=== PATIENT | male | born 1950 | race Caucasian/White ===

== ENCOUNTER 2018-12-30 20:33 | Inpatient (IN) | payer OTHER ==
[~2018-12-30] VITALS: Ht 177.8 cm; Wt 99.8 kg
[2018-12-30 20:49] LABS: PCO2 Arterial 54.5 mmHg (35-45); PO2 Arterial 167 mmHg (80-100); pH Blood Arterial 6.86 (7.35-7.45)
[2018-12-30 20:53] LABS: Mean Corpuscular HGB 29.7 pg (26.0-34.0); Mean Corpuscular HGB Conc 26.9 g/dL (31.5-36.5); Mean Corpuscular Volume 110 fL (80-100); Mean Platelet Volume 10.7 fL (9.1-12.4); Platelet Count 495 K/mm3 (150-400); RDW Coefficient Variation 13.1 % (11.7-14.2); Red Blood Cell Count 4.71 M/mm3 (4.30-5.90); White Blood Cell Count 18.63 K/mm3 (4.00-11.30)
[2018-12-30 21:12] LABS: International Normalized Ratio 1.37; Prothrombin Time Results 14.1 Sec (9.7-11.5)
[2018-12-30 21:15] LABS: Blood Urea Nitrogen 34 mg/dL (8-24); Bun/Creatinine Ratio 30.6 (12.0-20.0); CHOL/HDL RATIO 5.5; CO2, Blood 15 mmol/L (21-32); CPK Creatine Kinase 186 U/L (39-308); Calcium, Blood 9.4 mg/dL (8.5-10.1); Chloride, Blood 85 mmol/L (98-108); Cholesterol 132 mg/dL (50-200); Creatine Kinase MB Index 2.2 (0.0-4.0); Creatinine, Blood 1.11 mg/dL (0.60-1.20); Glomerular Filtration Rate >60 (60-); HDL Cholesterol 24 mg/dL (>39); LDL/HDL RATIO 3.1; Low Density Lipoprotein Chol 74 mg/dL (0-110); Magnesium, Blood 2.8 mg/dL (1.6-2.4); Triglycerides 168 mg/dL (30-160); Troponin I 0.407 ng/mL (0.000-0.040); Very Low Density Lipoprot Chol 33 mg/dL (6-32)
[2018-12-30 21:25] LABS: Anion Gap 16 mmol/L (6-16); Glucose, Blood 1502 mg/dL (70-99); Potassium, Blood 6.7 mmol/L (3.5-5.5); Sodium, Blood 116 mmol/L (136-145)
[2018-12-30 21:28] LABS: PCO2 Arterial 38.8 mmHg (35-45); PO2 Arterial 402 mmHg (80-100)
[2018-12-30 23:43] LABS: Source, Urine Catheter
[2018-12-30 23:45] LABS: Bilirubin, Urine Neg (Neg); Blood, Urine 3+ (Neg); Glucose Qualitative, Urine 4+ (Neg); Ketones, Urine Neg (Neg); Leukocyte Esterase, Urine Neg (Neg); Nitrite, Urine Neg (Neg); Protein, Urine 2+ (Neg); Specific Gravity, Urine 1.005 (1.003-1.022); Urobilinogen, Urine NORM (Normal)
[2018-12-30 23:57] LABS: Color, Urine Pale Yellow (P-Yellow)
[2018-12-30 23:58] LABS: Appearance, Urine Hazy (Clear); Bacteria Few /hpf; Squamous Epithelial Cells Few /hpf (Few); White Blood Cells, Urine 0-2 /hpf (0-5)
[2018-12-30 23:58] LABS: Glucose, Blood 1426 mg/dL (70-99)
[2018-12-30 23:59] LABS: Amorphous Mod (0-Heavy)
[2018-12-31] LABS: U Amphetamine Screen Not Detected; U Barbituate Screen Not Detected; U Benzodiazapine Screen Not Detected; U Buprenorphine Screen Not Detected; U Cannabinoids Screen Not Detected; U Cocaine Screen Not Detected; U Methadone Screen Not Detected; U Methamphetamine Screen Not Detected; U Opiates Screen Not Detected; U Oxycodone Screen Not Detected; U Phencyclidine Screen Not Detected; U Propoxyphene Screen Not Detected
[2018-12-31 01:07] LABS: Glucose, Blood 1213 mg/dL (70-99)
[2018-12-31 02:14] LABS: PCO2 Arterial 47.4 mmHg (35-45); PO2 Arterial 99.7 mmHg (80-100)
--- NOTE | 2018-12-31 02:53 | NUR ---
PT ARRIVED TO ICU 7 AT 2239 FROM ER. PT IS INTUBATED. NO SEDATION WAS ON WHEN PT ARRIVED. UNRESPONSIVE. PUT PT ON PROPOFOL PER DR. SORIANO. PT POSTURES AT TIMES AND DR. SORIANO WITNESSED. DR. SORIANO WAS IN HOUSE AND PLACED COOLING CATH. TARGET TEMP SET AT 36 DEGREES C. PT IS ON INSULIN GTT. HAS OSTOMY TO L ABD THAT WAS LEAKING AND WHOLE DEVICE WAS FILTHY. STOMA IS LARGE AND NOT PRODRUDING FROM SKIN. THERE APPEARS TO BE A LARGE HERNIA UNDER IT. PT HAS ULCERS ON L FOOT AND CALLUS TO OUTER R FOOT SEE PHOTOS. 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 APPEARS POORLY KEPT. NO FAMILY WITH PT. WAITING TO TAKE PT TO CT UNTIL ENOUGH STAFF CAN ACCOMPANY AND PT IS STABLE ENOUGH TO MOVE.
[2018-12-31 02:55] LABS: Glucose, Blood 926 mg/dL (70-99)
[2018-12-31 04:40] LABS: Hematocrit 35.6 % (37.0-53.0); Hemoglobin 11.9 g/dL (13.5-17.5); Mean Corpuscular HGB 29.7 pg (26.0-34.0); Mean Corpuscular HGB Conc 33.4 g/dL (31.5-36.5); Mean Platelet Volume 9.9 fL (9.1-12.4); Platelet Count 385 K/mm3 (150-400); RDW Coefficient Variation 12.2 % (11.7-14.2); RDW Standard Deviation 39.8 fL (35.1-46.3); Red Blood Cell Count 4.01 M/mm3 (4.30-5.90); White Blood Cell Count 20.21 K/mm3 (4.00-11.30)
[2018-12-31 04:41] LABS: Mean Corpuscular Volume 89 fL (80-100)
[2018-12-31 05:02] LABS: CPK Creatine Kinase 167 U/L (39-308)
[2018-12-31 05:06] LABS: Alanine Aminotransfer (ALT/SGP 57 U/L (12-78); Albumin, Blood 2.5 g/dL (3.4-5.0); Albumin/Globulin Ratio 0.5 (0.8-1.8); Alk Phos 218 U/L (50-136); Anion Gap 7 mmol/L (6-16); Aspartate Aminotrans (AST/SGOT 137 U/L (12-37); Bilirubin, Total 0.3 mg/dL (0.1-1.0); Blood Urea Nitrogen 33 mg/dL (8-24); CO2, Blood 25 mmol/L (21-32); Calcium, Blood 8.8 mg/dL (8.5-10.1); Chloride, Blood 104 mmol/L (98-108); Creatinine, Blood 0.94 mg/dL (0.60-1.20); Globulin, Blood 4.9 g/dL (2.2-4.0); Glomerular Filtration Rate >60 (60-); Glucose, Blood 783 mg/dL (70-99); Potassium, Blood 3.9 mmol/L (3.5-5.5); Sodium, Blood 136 mmol/L (136-145); Total Protein, Blood 7.4 g/dL (6.4-8.2)
--- NOTE | 2018-12-31 06:28 | NUR ---
SUMMARY PT WAS ER ADMIT. INTUBATED AND SEDATED WITH PROPOFOL. PT IS UNRESPONSIVE BUT STARTS COUGHING A LOT WHEN SEDATION IS TURNED DOWN. GRIMACES TO PAINFUL STIMULUS. PT IS BEING COOLED WITH COOLING CATH. COUGHING UP THICK DEE SECRETIONS WITH SOME WHITE SPECS. OSTOMY TO L ABD APPEARS TO HAVE A LARGE HERNIA UNDER IT. STOMA IS IRREGULAR SHAPED. NEW APPLIANCE WAS PLACED. HAS WOUNDS TO BILAT FEET (SEE PHOTOS). WOUND CULTURE SENT DUE TO PURULENT DRAINAGE NOTED. GLUCOSE HAS BEEN HIGH ALL NIGHT BUT IS COMING DOWN WITH INSULIN GTT. ON LEVOPHED NOW DUE TO LOW BP WITH TURNING SEDATION UP. HAD TO HAVE POWER GLIDE PLACED IN ADDITION TO CENTRAL LINE, OS, AND PERIPHERALS DUE TO ALL THE GTT'S PT WAS ON.
[2018-12-31 06:30] LABS: Glucose, Blood 730 mg/dL (70-99)
--- NOTE | 2018-12-31 08:00 | NUR ---
ASSUMED CARE PT. SEDATED AND INTUBATED AT THIS TIME. PROPOFOL GTT AT 20MCG/KG/MIN. PT. CURRENTLY GETTING COOLED VIA ZOLL CENTRAL LINE TO RIGHT GROIN, TEMP CURRENTLY 36.1 C. PT HAS POWERGLIDE TO LEFT UPPER ARM. PT. CURRENTLY HAS LEVOPHED INFUSING AT 8MCG/KG/MIN AND AMIO AT 0.5MG/MIN. PT. HAS BICARB INFUSING ALONG WITH ZOSYN AND INSULIN GTT AT 7U/HR. PT VSS CURRENTLY STABLE, HR 57, CONTINUES WITH DEFIBRILLATOR PADS IN PLACE. PT. HS HERNIA TO LEFT ABD ALONG WITH COLOSTOMY. PT. HAS ESPOSITO DRAINING TO GRAVITY. PT MISSING MULTIPLE TOES AND HAS FOOT WOUNDS-PICTURES IN CHART. DRESSINGS CDI.
[2018-12-31 08:45] LABS: Glucose, Blood 652 mg/dL (70-99)
[2018-12-31 09:36] LABS: Bun/Creatinine Ratio 27.3 (12.0-20.0); Calcium, Blood 8.2 mg/dL (8.5-10.1); Creatinine, Blood 1.21 mg/dL (0.60-1.20)
--- NOTE | 2018-12-31 09:45 | NUR ---
PROPOFOL PLACED ON STAND BY AT THIS TIME FOR NEURO ASSESSMENT.
[2018-12-31 09:49] LABS: Vancomycin, Trough 14.4 ug/mL (5.0-10.0)
[2018-12-31 09:55] LABS: Troponin I 1.63 ng/mL (0.000-0.040)
--- NOTE | 2018-12-31 11:19 | NUR ---
ECHOCARDIOGRAM COMPLETE
--- NOTE | 2018-12-31 11:37 | NUR ---
PT TO CT AND BACK. SHORT RUN OF VTACH (APPROX 5 BEATS) WHILE IN CT, THEN BACK TO SINUS HOLDEN. PT. CONTINUES ON LEVOPHED GTT TITRATED TO 10MCG/KG/MIN WELL AMIO GTT. WITH PROPOFOL ON SB NO PURPOSEFUL MOVEMENTS AT THIS TIME. RR INCREASES TO 30S, AND FACIAL GRIMACE AND COUGHING, HOWEVER NO GAG NOTED. PT. DOES NOT WITHDRAW FROM PAIN AT THIS TIME.
--- NOTE | 2018-12-31 13:09 | NUR ---
REPORT TO SHERIE LIN
--- NOTE | 2018-12-31 13:32 | NUR ---
ASSUMED CARE OF PATIENT LEVOPHED TITRATED DOWN TO 7 MCG ASSESSMENT DONE AT THIS TIME, WILL CONTINUE TO MONITOR
[2018-12-31 15:21] LABS: Anion Gap 8 mmol/L (6-16); Blood Urea Nitrogen 36 mg/dL (8-24); Bun/Creatinine Ratio 38.5 (12.0-20.0); CO2, Blood 24 mmol/L (21-32); Calcium, Blood 8.6 mg/dL (8.5-10.1); Chloride, Blood 106 mmol/L (98-108); Creatinine, Blood 0.94 mg/dL (0.60-1.20); Glomerular Filtration Rate >60 (60-); Glucose, Blood 352 mg/dL (70-99); Potassium, Blood 4.1 mmol/L (3.5-5.5); Sodium, Blood 138 mmol/L (136-145)
--- NOTE | 2018-12-31 16:48 | NUR ---
Met with Samy's family in ICU waiting area. They are clearly loving and concernd. They also tell me that they know Samy "has not taken very good care of himself" and "that fact that this happened is not surprising." Family appears aware of ptoential poor prognosis. They responded well to emotional affirmation and encouragement. They are not judaism. [employer] services will remain available.
--- NOTE | 2018-12-31 17:41 | NUR ---
PT REMAINS UNRESPONSIVE OFF OF PROPOFOL PROPOFOL OFF MOST OF DAY, INSULIN GTT REMAINS ON, CURRENTLY AT 10 UNITS PER HOUR, PT RESTRAINTS D/C AT 1400 PT REMAINS UNRESPONSIVE, HAS COUGH AND GAG REFLEX, LEVOPHED TITRATED DOWN THROUGHOUT AFTERNOON. COOLING CATH REMAINS RUNNING
[2018-12-31 21:23] LABS: Anion Gap 7 mmol/L (6-16); Blood Urea Nitrogen 41 mg/dL (8-24); CO2, Blood 25 mmol/L (21-32); Calcium, Blood 8.3 mg/dL (8.5-10.1); Chloride, Blood 109 mmol/L (98-108); Creatinine, Blood 1.05 mg/dL (0.60-1.20); Glomerular Filtration Rate >60 (60-); Glucose, Blood 121 mg/dL (70-99); Potassium, Blood 3.8 mmol/L (3.5-5.5); Sodium, Blood 141 mmol/L (136-145)
--- NOTE | 2018-12-31 22:10 | NUR ---
PT INTUBATED. PLACED ON PROPOFOL FOR SEDATION. WITHOUT SEDATION ON PT HAS IRREGULAR RESP PATTERN AND LOOKS UNCOMFORTABLE. PLACED ON 30MCG/KG/MIN OF PROPOFOL AND PT RELAXED A LITTLE BIT AND RESP IMPROVED. PT WILL GRIMACE TO PAINFUL STIMULUS BUT OTHERWISE UNRESPONSIVE. EYE'S ARE ROLLED BACK IN HEAD. NO SPONT MOVEMENT. INSULIN GTT BEING TITRATED FOR HIGH BLOOD SUGARS. TITRATING LEVOPHED. SEE FLOW SHEET FOR ALL GTTS. PT HAS COOLING CATH TO R GROIN. TARGET TEMP IS 36 DEGREES CELCIUS.
[2019-01-01 03:36] LABS: Hematocrit 35.3 % (37.0-53.0); Hemoglobin 11.9 g/dL (13.5-17.5); Mean Corpuscular HGB 29.5 pg (26.0-34.0); Mean Corpuscular HGB Conc 33.7 g/dL (31.5-36.5); Mean Corpuscular Volume 87 fL (80-100); Mean Platelet Volume 9.4 fL (9.1-12.4); Platelet Count 414 K/mm3 (150-400); RDW Coefficient Variation 12.5 % (11.7-14.2); RDW Standard Deviation 40.5 fL (35.1-46.3); Red Blood Cell Count 4.04 M/mm3 (4.30-5.90); White Blood Cell Count 25.29 K/mm3 (4.00-11.30)
[2019-01-01 03:47] LABS: Magnesium, Blood 1.7 mg/dL (1.6-2.4)
[2019-01-01 03:48] LABS: Phosphorus, Blood 2.9 mg/dL (2.5-4.9)
[2019-01-01 03:49] LABS: Anion Gap 8 mmol/L (6-16); Blood Urea Nitrogen 38 mg/dL (8-24); Bun/Creatinine Ratio 44.7 (12.0-20.0); CO2, Blood 24 mmol/L (21-32); Calcium, Blood 7.9 mg/dL (8.5-10.1); Chloride, Blood 108 mmol/L (98-108); Creatinine, Blood 0.85 mg/dL (0.60-1.20); Glomerular Filtration Rate >60 (60-); Glucose, Blood 156 mg/dL (70-99); Potassium, Blood 3.6 mmol/L (3.5-5.5); Sodium, Blood 140 mmol/L (136-145)
[2019-01-01 04:23] LABS: BAND PERCENT MAN 14 % (0-8); BASOPHILS PERCENT MAN 0 % (0-2); EOSINOPHILS PERCENT MAN 0 % (0-6); LYMPHOCYTES ABSOLUTE MAN 2.27 K/mm3 (0.84-5.20); LYMPHOCYTES PERCENT MAN 9 % (21-46); MONOCYTES ABSOLUTE MAN 0.75 K/mm3 (0.16-1.47); MONOCYTES PERCENT MAN 3 % (4-13); NEUTROPHILS ABSOLUTE MAN 22.25 K/mm3 (1.96-9.15); SEG NEUTROPHILS PERCENT MAN 74 % (41-73); TOTAL CELLS COUNTED 100
[2019-01-01 05:10] LABS: PCO2 Arterial 34.8 mmHg (35-45); PO2 Arterial 80.3 mmHg (80-100); pH Blood Arterial 7.44 (7.35-7.45)
--- NOTE | 2019-01-01 06:05 | NUR ---
SUMMARY PT INTUBATED ON VENT. PROPOFOL FOR SEDATION. WHEN OFF SEDATION PT HAS IRREGULAR BREATHING, COUGHS A LOT, AND CONTINUOUS GRIMACE. WITHDRAWLS FROM PAINFUL STIMULUS. EYE'S ARE ROLLED BACK IN HEAD. NO SPONT MOVEMENT. SCLERAL EDEMA NOTED. LEVOPHED WAS TITRATED OFF THIS AM. AMIO IS OFF NOW. INSULIN GTT AT 3UNITS/HR. COLOSTOMY HAS SEROSANGUINOUS FLUID IN BAG. REWARMING WAS STARTED AT 0100 WITH TARGET TEMP AT 98 DEGREES F.
--- NOTE | 2019-01-01 08:30 | NUR ---
ASSUMED CARE PT. REMAINS INTUBATED. SEDATION PLACED ON STAND BY THIS AM. NO SPONT MOVEMENT NOTED, NO RESTRAINTS IN PLACE. PT. DOES NOT WITHDRAW FROM PAINFUL STIMULI, PT. EYES NOTED TO BE IN UPWARD GAZE. VSS THIS AM. PT. REMAINS ON INUSLIN GTT WITH Q1HR BG CHECKS. PT DISPLAYS NO SIGNS OF PAIN, CNVI 0. WITH SEDATION OFF PT WILL OCCASIONALLY COUGH ON TUBE HOWEVER NO GAG NOTED WITH ORAL SUCTIONING. REWARMING STARTED LAST NOC. PT. CURRENTLY HAS CORE TEMP OF 98.0 VIA ZOLL. PT. CONTINUES WITH ESPOSITO DRAINING TO GRAVITY, CLEAR YELLOW URINE NOTED. PT. HAS OSTOMY TO LEFT ABD, WITH SMALL AMOUNT OF SEROSANGENOUS DRAINAGE NOTED TO BAG.
--- NOTE | 2019-01-01 09:33 | NUR ---
PROPFOL RESTARTED DUE TO FREQUENT COUGHING PT. CONTIUES TO BE UNRESPONSIVE, HOWEVER RR INCREASED TO 30S, AND PT COUGHING FREQUENTLY. PROPFOL RESTARTED AT 30MCG/KG/MIN FOR COMFORT.
[2019-01-01 11:15] LABS: Anion Gap 9 mmol/L (6-16); Blood Urea Nitrogen 36 mg/dL (8-24); Bun/Creatinine Ratio 31.9 (12.0-20.0); CO2, Blood 25 mmol/L (21-32); Chloride, Blood 107 mmol/L (98-108); Creatinine, Blood 1.13 mg/dL (0.60-1.20); Glomerular Filtration Rate >60 (60-); Glucose, Blood 159 mg/dL (70-99); Potassium, Blood 3.8 mmol/L (3.5-5.5); Sodium, Blood 141 mmol/L (136-145); Vancomycin, Trough 13.8 ug/mL (5.0-10.0)
--- NOTE | 2019-01-01 13:14 | NUR ---
TUBE FEEDING STARTED AT THIS TIME. WILL REMAIN ON INUSULIN GTT UNTIL STABLE ON TUBE FEEDING PER DR. GARIBAY
--- NOTE | 2019-01-01 17:24 | NUR ---
SHIFT SUMMARY PT. REMAINS UNRESPONSIVE ON VENT. PT WILL OCCASIONALLY PULL BILAT LE TOGETHER WHEN TESTING REFLEXES BUT IS NOT CONSISTANT. NO SPONT MOVEMENT NOTED. PT. REMAINS OUT OF RESTRAINTS. PT. CONTINUES ON INSULIN GTT, AND TUBE FEEDING STARTED TODAY TO BE ADVANCED TO A GOAL OF 30ML/HR AT 2114. PT OCCASIONALLY COUGHS ON VENT HOWEVER DOES NOT HAVE GAG. SCANT OUTPUT TO OSTOMY TODAY. ESPOSITO CONTINUES DRAINING TO GRAVITY. VSS T/O SHIFT. REPORT TO ONCOMING RN.
[2019-01-01 17:53] LABS: Anion Gap 5 mmol/L (6-16); Blood Urea Nitrogen 25 mg/dL (8-24); Bun/Creatinine Ratio 35.9 (12.0-20.0); CO2, Blood 25 mmol/L (21-32); Calcium, Blood 8.1 mg/dL (8.5-10.1); Chloride, Blood 110 mmol/L (98-108); Glomerular Filtration Rate >60 (60-); Glucose, Blood 176 mg/dL (70-99); Potassium, Blood 3.6 mmol/L (3.5-5.5); Sodium, Blood 140 mmol/L (136-145)
--- NOTE | 2019-01-01 18:13 | NUR ---
LEVOPHED PT. CONTINUING TO BECOME MORE HYPOTENSIVE T/O SHIFT. DR. GARIBAY NOTIFIED AND LEVOPHED GTT RESTARTED.
--- NOTE | 2019-01-01 18:24 | NUR ---
RESP. RATE PT. BP RESPONDING WELL TO LEVOPHED, PT.WORK OF BREATHING HOWEVER INCREASED SIGNIFICANTLY, RR IN THE 30S WITH USE OF ACCESSORY MUSCLES, DR. GARIBAY CALLED TO BEDSIDE. ORDERS OBTAINED FOR FENTANYL AND ATIVAN IF NEEDED. PLANS TO RE CT TOMORROW.
--- NOTE | 2019-01-01 19:15 | NUR ---
ASSUMING CARE OF PT AT THIS TIME. PT REPORT RECEIVED AT BEDSIDE WITH OFFGOING NURSE, MARIYA LIN. PT LAYING IN BED, INTUBATED, SEDATED ON PROPOFOL, UNRESPONSIVE. VS STABLE - SEE VS FS. PT DOES NOT APPEAR TO BE IN DISTRESS AT THIS TIME. WILL REVIEW PLAN OF CARE.
--- NOTE | 2019-01-01 19:30 | NUR ---
ASSESSMENT PT UNRESPONSIVE, DOES NOT RESPOND TO PAINFUL STIMULI, NO GAG WITH SUCTIONING, NO OPENING OF EYES, NO MOVEMENT OF EYES, SLUGGISH PUPIL RESPONSES. PT APPEARS TO BE EXPERIENCING DECORTICATE POSTURING. PROPOFOL DRIP AT 40 MCG/KG/MIN - WILL TITRATE TO EFFECT. JOHNY SENSATION. NO SPONT MOVEMENT NOTED. NO S/SX OF PAIN/DISCOMFORT NOTED. VENT SETTINGS: AC 14, TV 500, PEEP 5, FIO2 35%. RR 30'S. OXY SAT >90%. SUCTION VIA ETT: MOD AMOUNTS OF THICK WHITE SECRETIONS. AFEBRILE. COOL CATH TEMP TARGET AT 97.8. NSR WITH BBB. HR 70'S. BP STABLE - SEE VS FS. LEVOPHED DRIP AT 10 MCG/MIN. FAINT PULSES. COOL, PALE SKIN. MOTTLED KNEES. CAP REFIL >3 SECONDS. 1+ EDEMA BLE'S. HYPOACTIVE BT X4 QUADRANTS. ABD MOD DIST, SOFT. HERNIA WITH COLOSTOMY BAG: PURULENT AND SEROSANGUINEOUS SECRETIONS. OG TUBE. TF: VHP AT 20 ML/HR AND 30 ML FLUSH Q4 HR. RESIDUAL 0. F/C: CLEAR YELLOW URINE. POWERGLIDE NATIVIDAD. PIV X1. CL R GROIN. NS TKO AT 10 ML/HR. LR AT 100 ML/HR. INSULIN DRIP AT 2 UNITS/HR. CHEMBG Q1 HR.
--- NOTE | 2019-01-01 19:31 | NUR ---
Clinical Visit: Kristi, nurse, is in the pt's room on my arrival. She is giving meds. Pt will have a follow up head CT tomorrow. She reports that pt has brothers and sisters as NOK: pt does not have children. His bro and sis do not live locally, however, Kristi reports that he has a large number of neices and nephews in the area. Kristi thinks it would be best to engage the family more when we know more from his CT tomorrow. Will remain available.
[2019-01-02 03:22] LABS: Hematocrit 37.8 % (37.0-53.0); Hemoglobin 12.5 g/dL (13.5-17.5); Mean Corpuscular HGB 29.6 pg (26.0-34.0); Mean Corpuscular HGB Conc 33.1 g/dL (31.5-36.5); Mean Corpuscular Volume 89 fL (80-100); Mean Platelet Volume 9.4 fL (9.1-12.4); Platelet Count 452 K/mm3 (150-400); RDW Standard Deviation 42.8 fL (35.1-46.3); Red Blood Cell Count 4.23 M/mm3 (4.30-5.90); White Blood Cell Count 28.36 K/mm3 (4.00-11.30)
[2019-01-02 03:38] LABS: Anion Gap 8 mmol/L (6-16); Blood Urea Nitrogen 27 mg/dL (8-24); CO2, Blood 26 mmol/L (21-32); Calcium, Blood 8.2 mg/dL (8.5-10.1); Chloride, Blood 109 mmol/L (98-108); Creatinine, Blood 0.82 mg/dL (0.60-1.20); Glomerular Filtration Rate >60 (60-); Glucose, Blood 139 mg/dL (70-99); Magnesium, Blood 1.9 mg/dL (1.6-2.4); Phosphorus, Blood 3.1 mg/dL (2.5-4.9); Potassium, Blood 3.7 mmol/L (3.5-5.5); Sodium, Blood 143 mmol/L (136-145)
[2019-01-02 03:43] LABS: BAND PERCENT MAN 9 % (0-8); BASOPHILS PERCENT MAN 0 % (0-2); EOSINOPHILS ABSOLUTE MAN 0.28 K/mm3 (0.00-0.68); EOSINOPHILS PERCENT MAN 1 % (0-6); LYMPHOCYTES ABSOLUTE MAN 3.97 K/mm3 (0.84-5.20); LYMPHOCYTES PERCENT MAN 14 % (21-46); MONOCYTES PERCENT MAN 6 % (4-13); SEG NEUTROPHILS PERCENT MAN 70 % (41-73); TOTAL CELLS COUNTED 100
[2019-01-02 03:51] LABS: PCO2 Arterial 37.4 mmHg (35-45); PO2 Arterial 67.6 mmHg (80-100)
--- NOTE | 2019-01-02 04:36 | NUR ---
SHIFT ASSESSMENT NO ACUTE CHANGES NOTED T/O SHIFT. PT UNRESPONSIVE, DOES NOT RESPOND TO PAINFUL STIMULI, NO GAG WITH SUCTIONING, NO OPENING OF EYES, NO MOVEMEMT OF EYES, SLUGGISH PUPIL RESPONSES. DECORTICATE POSTURING NOTED AT BEGINNING OF THE SHIFT. PROPOFOL CURRENTLY ON STANDBY - CONT TO TITRATE DRIP TO EFFECT. JOHNY SENSATION. NO SPONT MOVEMENT NOTED. NO S/SX OF PAIN/DISCOMFORT NOTED. LUNGS COARSE, DIMINISHED LOWER LOBES. VENT SETTINGS T/O SHIFT: AC 14, TV 500, PEEP 5, FIO2 30%. DOUBLE STACKING OF VENT AND INCREASED RR NOTED WITH DECREASED SEDATION AND PT CARE WHILE ON AC VENT SETTINGS. SBT COMPLETED ON PS 7, PEEP 5, FIO2 30%. PT REMAINS ON PS SETTINGS D/T NO DOUBLE STACKING, ADEQUATE TV, AND RR 20'S TO 30'S. SEE ADELA, RT'S NOTE. RR 17 TO 40'S T/O SHIFT. OCC OXY SAT <90% WITH INCREASED RR AND DOUBLE STACKING. INCREASED QUANTITIES OF PROPOFOL REQUIRED TO PREVENT DOUBLE STACKING AND INCREASED RR. OTHERWISE, OXY SAT REMAINED 90% AND GREATER T/O SHIFT. SUCTION VIA ETT: MOD AMOUNTS OF THICK WHITE SECRETIONS. AFEBRILE. COOLING CATH TEMP TARGET AT 97.8. SB TO NSR WITH BBB, OCC PAC'S, AND OCC PVC'S. ONE RUN OF VTACH NOTED. SEE RYTHYM STRIP. HR 50'S TO 90'S. BP STABLE - SEE VS FS. LEVOPHED DRIP ON STANDBY. FAINT PULSES. COOL, PALE SKIN. SKIN OCC DIAPHORETIC. MOTTLED KNEES. CAP REFILL >3 SECONDS. EDEMA NOTED. HYPOACTIVE BT X4 QUADRANTS. ABD MOD DSIT, SOFT. HERNIA WITH COLOSTOMY BAG: MINIMAL PURULENT AND SEROSANGUNEOUS SECRETIONS. OG TUBE. TF: VHP AT GOAL RATE 30 ML/HR AND 30 ML FLUSH Q4 HR. RESIDUAL REMAINED 0. F/C: CLEAR YELLOW URINE. POWERGLIDE NATIVIDAD. PIV X1 - SL. CL R GROIN. NS TKO X2 ON STANDBY. LR AT 100 ML/HR. INSULIN DRIP AT 2.5 UNITS/HR. CHEMBG Q1 HR. WILL CONT TO MONITOR PT AND WILL PROVIDE BEDSIDE REPORT TO ONCOMING NURSE THIS AM.
--- NOTE | 2019-01-02 07:29 | NUR ---
ASSUMED CARE PT. REMAINS UNRESPONSIVE ON VENT CURRENTLY ON SPONT WITH SETTINGS OF 7/5, FIO2 40%. PT RR IN THE HIGH 20S-30S WITH TV IN THE 500S-600S. WITH ANY STIMULATION RR INCREASES TO 30S. PT. DOES NOT WITHDRAW FROM PAINFUL STIMULI. PT. PUPILS EQUAL HOWEVER ROLLED UPWARD IN HEAD MAKING IT DIFFICULT TO ASSESS PUPILS REACTIVENESS. PT. PULLING ARMS TOWARD CORE WITH EVERY EXPIRATION. PT. BILAT LE APPEAR MOTTLED THIS AM UP TO MID THIGH. NO OUTPUT FROM OSTOMY. ESPOSITO CONTINUES TO DRAIN TO GRAVITY. PT CONTINUES ON ZOLL CORE TEMP. FOR MANAGEMENT OF TEMP. PT. OFF LEVOPHED AND PROPOFOL THIS AM, REMAINS ON 1U INSULIN.
--- NOTE | 2019-01-02 12:55 | NUR ---
PT TO CT SCAN
--- NOTE | 2019-01-02 14:09 | NUR ---
CALL TO UPDATE FAMILY/ COMFORT CARE SPOKE TO PT BROTHER XAVIER, WHO WOULD BE CLOSEST FAMILY MEMBER, PT DOES NOT HAVE CHILDREN. PER PT. BROTHER REQUESTING TO WITHDRAW CARE AT THIS TIME, STATES "HE WOULDNT WANT TO BE HOOKED UP TO ALL THOSE MACHINES", CLARIFIED THAT FAMILY WOULD LIKE TO WITHDRAW KNOWING THAT PT COULD PASS AWAY WITH OUT VENT AND WOULD LIKE NO FUTHER CPR AND LIFE SAVING INTERVENTIONS. VERIFIED WITH FAMILY BY LONA NEIL RN. PT. TO BE CHANGED TO COMFORT CARE. THERE IS A COUSIN AT BEDSIDE AND PER PT BROTHER REQUEST, PT COUSIN TO ASSIST WITH CHOOSING HOME. ADDITIONAL FAMILY TO BE NOTIFIED. SPOKE TO DR. GARIBAY AT THIS TIME, NOTFIED OF FAMILY DECISION COMFORT CARE ORDERS TO BE PLACED.
--- NOTE | 2019-01-02 15:16 | NUR ---
PT MED WITH ATIVAN AND MORPHINE PER FAMILY REQUEST FOR COMFORT PRIOR TO EXTUBATION. AWAITING RT FOR EXTUBATION OF PT.
--- NOTE | 2019-01-02 15:39 | NUR ---
PT. EXTUBATED AT THIS TIME FAMILY REMAINS AT BEDSIDE. MEDICATIONS TO BE ADMIN NEEDED. FAMILY SATISIFIED WITH CARE AT THIS TIME.
--- NOTE | 2019-01-02 19:15 | NUR ---
ASSUMING CARE OF PT AT THIS TIME. PT REPORT RECEIVED AT BEDSIDE WITH OFFGOING NURSE, MARIYA LIN. PT LAYING IN BED, UNRESPONSIVE UPON ENTERING THE ROOM. NO FAMILY AT BEDSIDE. PT ON COMFORT CARE MEASURES. PT DOES NOT APPEAR TO BE IN DISTRESS AT THIS TIME. WILL REVIEW PLAN OF CARE.
--- NOTE | 2019-01-02 19:30 | NUR ---
ASSESSMENT PT UNRESPONSIVE, DOES NOT RESPOND TO PAINFUL STIMULI, NO GAG WITH ORAL CARE, NO OPENING OF EYES, NO MOVEMENT OF EYES, SLUGGISH PUPIL REPSONSES. JOHNY SENSATION. NO SPONT MOVEMENT. NO S/SX OF PAIN/DISCMOFRT. NO FAMILY MEMBERS AT BEDSIDE. WILL ASSIST WITH COMFORT CARE MEASURES. NO ANXIETY. NO DELIRIUM. LUNGS COARSE, DIMINISHED LOWER LOBES. PT ON RA. OXY SAT >90%. RR 30'S. NO DYSPNEA. NSR WITH OCC PAC'S AND BBB. HR 90'S. FAINT PULSES. MOTTLED KNEES. CAP REFILL >3 SECONDS. EDEMA NOTED. COOL, PALE SKIN. COVERED WITH BLANKETS. HYPOACTIVE BT X4 QUADRANTS. ABD MOD DIST, SOFT. HERNIA WITH COLOSTOMY BAG: MINIMAL PURULENT AND SEROSANGEOUS SECRETIONS. NPO. F/C: CLEAR, YELLOW. CL R GROIN - SL. PG NATIVIDAD - SL.
--- NOTE | 2019-01-03 00:16 | NUR ---
SPOKE WITH DR MCINTOSH REGARDING FAMILIES CONCERNS WITH COMFORT CARE AND THE PT NOT RECEIVING TUBE FEEDING OR ANTIBIOTICS. DR MCINTOSH REVIEWED THE HEAD CT AND CONFIRMED THAT THE PT HAS A HYPOXIC BRAIN INJURY AND WILL NOT RECOVER FROM THIS.
--- NOTE | 2019-01-03 06:11 | NUR ---
SHIFT ASSESSMENT NO ACUTE CHANGES NOTED T/O SHIFT. PT UNREPSONSIVE, DOES NOT RESPOND TO PAINFUL STMULI, NO GAG WITH ORAL CARE, NO OPENING OF EYES, NO MOVEMENT OF EYES, SLUGGISH PUPIL RESPONSES. JOHNY SENSATION. NO SPONT MOVEMENT. NO S/SX OF PAIN/DISCOMFORT. FAMLILY MEMEBRS AT BEDSIDE T/O SHIFT. DEVANG (THE PT'S COUSIN) CONT TO REQUEST PAIN MEDS FOR PAIN/DISCOMFORT AND ATIVAN FOR AGITATION/ANXIETY T/O SHIFT. CONT TO PROVIDE COMFORT CARE MEASURES T/O SHIFT. THERE WERE MULTIPLE PHONE CALLS TO ICU FROM PT'S FRIENDS AND FAMILY T/O SHIFT. PT WAS ONLY PROVIDED TO THOSE ON THE "CONSENT TO VERBAL RELEASE OF INFORMATION" FORM TO PROTECT HIPPA. PT INFORMATION WAS ONLY PROVIDED TO JW (PT'S SISTER), XAVIER (PT'S BROTHER), AND DEVANG (PT'S COUSIN). JW, XAVIER, AND DEVANG ARE ALLOWED PT INFORMATION DIRECTED ON THE "CONSENT TO VERBAL RELEASE OF INFORMATION" FORM. LUNGS COARSE, DIMINISHED LWOER LOBES. PT ON RA. OXY SAT 60%. RR 20'S TO 30'S. NSR WITH OCC PAC'S, OCC PVC'S, AND BBB. HR 90'S TO 100'S. FAINT PULSES. MOTTLED KNEES. CAP REFILL >3 SECONDS. EDEMA NOTED. SKIN CURRENTLY WARM, PALE. FAN ON. COLD WASHCLOTH TO FORHEAD. HYPOACTIVE BT X4 QUADRANTS. ABD MOD DIST, SOFT. HERNIA WITH COLOSTOMY BAG: MINIMAL PURULENT AND SEROSANGEOUS SECRETIONS. NPO. F/C: CLEAR, YELLOW. CL R GROIN - SL. PG NATIVIDAD - SL. WILL CONT TO MONITOR PT AND WILL PROVIDE BEDSIDE REPORT TO ONCOMING NURSE THIS AM.
--- NOTE | 2019-01-03 10:29 | NUR ---
TIME OF TOD = 900; CALLED DR AGUIRRE AT 09, CALLED DONATION BANK AT 09 - FAXED FACE SHEET, H&P, LABS, AND PROGRESS NOTES - AWAITING CALL BACK, AND NOTIFIED DEVANG, THE COUSIN WHO HAS BEEN COORDINATING COMMUNICATION WITH THE FAMILY, AT 09 - WHO ENTERED THE ROOM AT THAT TIME.
--- NOTE | 2019-01-03 11:29 | NUR ---
DONATION BANK CALLED AND REQUESTED ICE TO BE APPLIED TO EYES; ICE PLACED ON EYES AT 1125.
== END 2019-01-03 09:01 ==
LOC: ER 20:33 → ICUW 20:54 → EDBD 20:54 → ICUE 20:54
PROVIDERS: Emergency Medicine; Internal Medicine Critical Care Medicine; ADMIT Internal Medicine
PROC: 02HV33Z Insertion of Infusion Device into Superior Vena Cava, Percutaneous Approach (ICD-10-PCS; principal; 2018-12-31)
PROC: 5A12012 Performance of Cardiac Output, Single, Manual (ICD-10-PCS; 2018-12-31)
PROC: 0BH17EZ Insertion of Endotracheal Airway into Trachea, Via Natural or Artificial Opening (ICD-10-PCS; 2018-12-31)
PROC: 5A1945Z Respiratory Ventilation, 24-96 Consecutive Hours (ICD-10-PCS; 2018-12-31)
DX: I21.A1 Myocardial infarction type 2 (principal); E13.10 Other specified diabetes mellitus with ketoacidosis without coma; J18.1 Lobar pneumonia, unspecified organism; J96.00 Acute respiratory failure, unspecified whether with hypoxia or hypercapnia; I42.9 Cardiomyopathy, unspecified; N17.9 Acute kidney failure, unspecified; G93.1 Anoxic brain damage, not elsewhere classified; G93.40 Encephalopathy, unspecified; M86.672 Other chronic osteomyelitis, left ankle and foot; Z51.5 Encounter for palliative care; I46.9 Cardiac arrest, cause unspecified; E11.65 Type 2 diabetes mellitus with hyperglycemia; E87.5 Hyperkalemia; Z93.3 Colostomy status; Z87.891 Personal history of nicotine dependence; I25.10 Atherosclerotic heart disease of native coronary artery without angina pectoris; E11.42 Type 2 diabetes mellitus with diabetic polyneuropathy; I11.0 Hypertensive heart disease with heart failure; I50.9 Heart failure, unspecified; F17.210 Nicotine dependence, cigarettes, uncomplicated
CPT/HCPCS: 31500; 31720; 36415; 36600; 51702; 70450; 71045; 80048; 80053; 80061; 80202; 81001; 82010; 82330; 82550; 82553; 82803; 82947; 83605; 83735; 83880; 84100; 84145; 84484; 85025; 85027; 85610; 85730; 86850; 86900; 86901; 87070; 87081; 87205; 93005; 93010; 93306; 94002; 94003; 94640; 96365-59; 96368; 96375-59; 99285-25; C1751; C9113; J0282; J0610; J0692; J1644; J1650; J1815; J1953; J1956; J2060; J2270; J2543; J2704; J3370; J7030; J7040; J7050; J7060; J7120; P9046